=== PATIENT | male | born 1945 | race Caucasian/White ===

== ENCOUNTER → 2020-02-25 | Outpatient (CLI) | payer OTHER | LOC: CAT 08:59 | DX: Z13.6 Encounter for screening for cardiovascular disorders (principal); E78.00 Pure hypercholesterolemia, unspecified; I25.10 Atherosclerotic heart disease of native coronary artery without angina pectoris ==

== ENCOUNTER → 2020-03-01 | Outpatient (CLI) | payer OTHER ==
[~2020-03-01] MED LIST: ASA81BEC PO; CHILDREN'S ALLER5 M1 PO; DILTIAZEM ER180 M2 PO; FLECAINIDE ACET50 M2 PO; LOSARTAN-HCTZ1 EAC3 PO; ROSUVASTATIN CA20 MG PO; SUPER THERAVIT1 EACH PO; XARELTO20 MG PO
== END ==
LOC: SJCVCIMAG 07:25
DX: I45.10 Unspecified right bundle-branch block (principal); E78.00 Pure hypercholesterolemia, unspecified; K21.9 Gastro-esophageal reflux disease without esophagitis; I48.0 Paroxysmal atrial fibrillation; I25.10 Atherosclerotic heart disease of native coronary artery without angina pectoris; I10 Essential (primary) hypertension; Z79.899 Other long term (current) drug therapy

== ENCOUNTER → 2020-03-08 | Outpatient (CLI) | payer OTHER ==
[~2020-03-08] VITALS: Ht 165.1 cm; Wt 83.9 kg
[2020-03-08 07:26] VITALS: BP 142/69
[2020-03-08 07:26] LABS: HEMATOCRIT 41.3 % (42.0-52.0); HEMOGLOBIN 13.8 gm/dL (14.0-18.0); MCH 31.4 pg (26.0-34.0); MCHC 33.5 g/dL (28.0-37.0); MCV 93.9 fL (80.0-100.0); RBC 4.4 mil/uL (4.50-6.00); RDW 14.3 % (10.5-14.5); WBC 4.7 thou/uL (4.0-11.0)
[2020-03-08 07:37] LABS: CREATININE 1.4 mg/dL (0.7-1.3); POTASSIUM 4.1 mmol/L (3.5-5.1)
--- NOTE | 2020-03-08 08:32 | EKG ---
[facility] [place] [address] ELECTROCARDIOGRAM REPORT Name: MILESWOLF Room #: [facility]#: [id number] Admission: 03/08/20 Attend Phys: Efrain Cook MD Discharge: Date of : 41 Report #: [id number] THIS REPORT FOR: cc: Polo [place] Timothy C. DO Lundgren, Craig H. MD [facility] ~ THIS REPORT FOR: //name// [facility] Test Date: 2020-03-08 Test Time: 07:23:58 Pat Name: WOLF AQUINO Department: Room: Gender: Attic Blower: Marni CORDON : 1945 Requested By: Efrain Cook Order Number: [id number] MD: Jacky Newman Measurements Intervals [place] Rate: 60 P: 31 CO: 191 QRS: -53 QRSD: 165 T: 0 QT: 468 QTc: 468 Interpretive Statements Sinus rhythm Right bundle branch block No previous ECG available for comparison Electronically Signed On 03-08-2020 8:30:23 CDT by Jacky Newman [email or web address] <ELECTRONICALLY SIGNED> By: Jacky Newman MD, FAC 03/08/2030 2 2 Jacky Newman MD, [facility] /EPI
--- NOTE | 2020-03-08 15:40 | CATHLAB ---
[facility] [place] [address] INVASIVE PROCEDURE REPORT Name: MILESWOLF Room #: REG [facility]#: [id number] Admission: 03/08/20 Attend Phys: Efrain Cook MD Discharge: Date of : 41 Report #: [id number] THIS REPORT FOR: cc: [place]o [place] Timothy C. DO Park, Jin S. MD ~ APPROVED REPORT Study performed: 03/08/2020 07:40:01 Patient Details Patient Status: Out-Patient Room #: The patient is a 74 year-old male Event Personnel Efrain Cook Insurance Risk Surveyor, Manuelito Siddiqi RN RN, Kiley Causey RN RN, Fidelia Lawson RTR Monitor, Gill Hernandez Scrgiovanna Procedures Performed Left Heart Cath w/or w/o Coronaries [id number] [facility] Art Access - R femoral artery* 27250 Initial Mod Sed Same Phys/QHP Gr5y [id number] Indication Positive stress test Risk Factors Hypercholesterolemia, Coronary Artery DiseaseHypertension Procedure Narrative The patient was brought electively to the Cardiac Catheterization Laboratory and was prepped and draped in a sterile manner. The Right Groin^ was infiltrated with 1% Lidocaine subcutaneous anesthesia. A PINNACLE 4FR Sheath #[id number] sheath was inserted into the RFA^. Coronary angiography was performed using coronary diagnostic catheters. The right coronary system was accessed and visualized with a JR4 catheter. The left coronary system was accessed and visualized with a JL5 catheter. The left ventricle was accessed and visualized with a JR4 catheter. Hemostasis was obtained with manual pressure following sheath removal without any complications. The patient tolerated the procedure well and there were no complications associated with the procedure. There was no hematoma. [facility] [address] [place] [address] INVASIVE PROCEDURE REPORT Name: WOLF AQUINO Room #: REG [facility]#: [id number] Admission: 03/08/20 Attend Phys: Efrain Cook MD Discharge: Date of : 41 Report #: [id number] Intraoperative Conscious Sedation Sedation start time: 8:15 Case end Time: 8:45 Fentanyl 50 mcg Versed 1 mg Fluoro Time: 4.20 minutes Dose: DAP 5612.00 cGycm2 1371 mGy Contrast Type and Amount: Visipaque 35 ml Coronary Angiography The patient's coronary anatomy is left dominant. Diagnostic Cath Left Main This is a large-caliber vessel, with no flow-limiting lesions. LAD The LAD is a moderate-sized caliber vessel, traverses the anterior wall and terminates at the apex. There is mild disease in the proximal segment, 20%. Diagonal 1 This is a moderate-sized caliber vessel, with a mild stenosis in the proximal segment, 20%. It divides into several branches, supplying the anterolateral wall. Diagonal 2 This is a patent vessel, with no flow-limiting lesions. Circumflex The left circumflex artery is a dominant vessel, with an ectatic region within the midsegment. OM1 This is a moderate-sized caliber vessel with mild disease at the proximal segment, 20%. OM2 This is a moderate-sized caliber vessel, with no flow-limiting lesions. OM3 This is a patent vessel, with no flow-limiting lesions. L PDA This is a patent vessel, with no flow-limiting lesions. Right Coronary This is a small, nondominant vessel with no flow-limiting lesions. Left Ventriculography Left Ventriculography was not performed. Ejection Fraction was 60% based off patient's Nuclear Cardiac Stress Test. An LVEDP was measured and there is no gradient across the outflow tract. Hemodynamics The aortic pressure is 159/68 mmHg with a mean of mmHg. The left ventricular pressure is 141/8 mmHg with a mean of mmHg. The left ventricular end diastolic pressure is 17 mmHg. There was no gradient across the aortic valve upon pullback. [facility] [address] [place] [address] INVASIVE PROCEDURE REPORT Name: WOLF AQUINO Room #: REG [facility]#: [id number] Admission: 03/08/20 Attend Phys: Efrain Cook MD Discharge: Date of : 41 Report #: [id number] Conclusion 1. There is mild, nonobstructive disease in the LAD, diagonal and OM1 vessels. 2. Left dominant system. 3. Normal LV systolic function. 4. Recommend risk factor management. <ELECTRONICALLY SIGNED> By: Efrain Cook MD 03/08/20 1538 1538 1538 Efrain Cook MD /INF
== END | disposition home or self-care (01) ==
LOC: CATH 06:24
PROVIDERS: Internal Medicine Cardiovascular Disease
DX: R94.39 Abnormal result of other cardiovascular function study (principal); I25.10 Atherosclerotic heart disease of native coronary artery without angina pectoris; I10 Essential (primary) hypertension; E78.00 Pure hypercholesterolemia, unspecified; I48.0 Paroxysmal atrial fibrillation; M19.90 Unspecified osteoarthritis, unspecified site; K21.9 Gastro-esophageal reflux disease without esophagitis; Z98.890 Other specified postprocedural states; Z79.899 Other long term (current) drug therapy; Z79.01 Long term (current) use of anticoagulants

== ENCOUNTER 2020-03-17 14:37 | Observation (INO) | payer OTHER ==
--- NOTE | 2020-03-17 16:53 | NUR ---
PT ARRIVED TO ROOM 219 APPROXIMATELY 1640. PT ORDERED BEDREST FOR 3 HOURS. VSS. AFEBRILE. NO PAIN/COMPLAINTS REPORTED BY PT. NSR ON THE MONITOR. HR 73. PT RESTING IN BED WITH CALL LIGHT IN REACH. WILL CONTINUE TO MONITOR.
[2020-03-17 17:03] VITALS: BP 153/79
== END 2020-03-17 20:13 | disposition home or self-care (01) ==
LOC: SJCVCIMAG 14:37 → 2N 16:14
PROVIDERS: ADMIT Internal Medicine Cardiovascular Disease; ATTEND Internal Medicine Cardiovascular Disease
DX: S30.1XXA Contusion of abdominal wall, initial encounter (principal); T81.718A Complication of other artery following a procedure, not elsewhere classified, initial encounter; I72.9 Aneurysm of unspecified site; I25.10 Atherosclerotic heart disease of native coronary artery without angina pectoris; I48.0 Paroxysmal atrial fibrillation; I10 Essential (primary) hypertension; E78.00 Pure hypercholesterolemia, unspecified; X58.XXXA Exposure to other specified factors, initial encounter; Y93.89 Activity, other specified; Y92.89 Other specified places as the place of occurrence of the external cause; Y99.8 Other external cause status

== ENCOUNTER → 2020-03-20 | Outpatient (CLI) | payer OTHER | LOC: SJCVCIMAG 07:48 | PROVIDERS: ATTEND Internal Medicine Cardiovascular Disease | DX: R10.31 Right lower quadrant pain (principal); I72.9 Aneurysm of unspecified site ==

== ENCOUNTER → 2020-04-06 | Outpatient (CLI) | payer OTHER | END | disposition home or self-care (01) | LOC: SJCVC 09:21 | PROVIDERS: ATTEND Internal Medicine Cardiovascular Disease | DX: I45.10 Unspecified right bundle-branch block (principal); R94.31 Abnormal electrocardiogram [ECG] [EKG]; T81.718A Complication of other artery following a procedure, not elsewhere classified, initial encounter; I72.9 Aneurysm of unspecified site; I25.10 Atherosclerotic heart disease of native coronary artery without angina pectoris; I48.0 Paroxysmal atrial fibrillation; I10 Essential (primary) hypertension; E78.00 Pure hypercholesterolemia, unspecified; K21.9 Gastro-esophageal reflux disease without esophagitis; G47.30 Sleep apnea, unspecified; Z79.01 Long term (current) use of anticoagulants; Z79.899 Other long term (current) drug therapy; Y83.8 Other surgical procedures as the cause of abnormal reaction of the patient, or of later complication, without mention of misadventure at the time of the procedure; Y92.89 Other specified places as the place of occurrence of the external cause ==

== ENCOUNTER → 2020-10-09 | Outpatient (CLI) | payer OTHER | LOC: SJCVC 08:24 | PROVIDERS: ATTEND Internal Medicine Cardiovascular Disease | DX: I10 Essential (primary) hypertension (principal); I48.0 Paroxysmal atrial fibrillation; E78.00 Pure hypercholesterolemia, unspecified; Z79.899 Other long term (current) drug therapy ==

== ENCOUNTER → 2020-10-26 | Outpatient (CLI) | payer OTHER | LOC: SJCVCIMAG 10-19 08:52 | PROVIDERS: ATTEND Internal Medicine Cardiovascular Disease | DX: I65.23 Occlusion and stenosis of bilateral carotid arteries (principal); R94.31 Abnormal electrocardiogram [ECG] [EKG]; I45.10 Unspecified right bundle-branch block; I25.10 Atherosclerotic heart disease of native coronary artery without angina pectoris; I48.0 Paroxysmal atrial fibrillation; I10 Essential (primary) hypertension; E78.00 Pure hypercholesterolemia, unspecified; M19.90 Unspecified osteoarthritis, unspecified site; K21.9 Gastro-esophageal reflux disease without esophagitis; G47.30 Sleep apnea, unspecified; Z79.899 Other long term (current) drug therapy ==